=== PATIENT | female | born 1960 | race Caucasian/White ===

== ENCOUNTER → 2017-05-26 | Outpatient (CLI) | payer OTHER ==
--- NOTE | 2017-05-28 11:44 | MM ---
Reason for exam: screening (asymptomatic). Last mammogram was performed 1 year and 1 month ago. History: Family history of breast cancer in paternal aunt and breast cancer in mother at age 30. Physical Findings: A clinical breast exam by your physician is recommended on an annual basis and results should be correlated with mammographic findings. MG Screening Mammo w CAD Bilateral CC and MLO view(s) were taken. Prior study comparison: April 24, 2016, bilateral MG screening mammo w CAD. March 25, 2015, bilateral MG screening mammo w CAD. November 25, 2013, bilateral digital screening mammo w/CAD. The breast tissue is heterogeneously dense. This may lower the sensitivity of mammography. No suspicious abnormality. No significant changes when compared with prior studies. ASSESSMENT: Incomplete: need additional imaging evaluation, BI-RAD 0 RECOMMENDATION: Ultrasound of the left breast. (area of pain). [facility] will attempt to contact patient to return for ultrasound.
== END | disposition home or self-care (01) ==
LOC: RADMAMWWP 11:32
PROVIDERS: ATTEND Obstetrics & Gynecology
DX: Z12.31 Encounter for screening mammogram for malignant neoplasm of breast (principal)

== ENCOUNTER → 2017-06-12 | Outpatient (CLI) | payer OTHER ==
--- NOTE | 2017-06-13 08:27 | USB ---
Reason for exam: additional evaluation requested from abnormal screening. History: Family history of breast cancer in paternal aunt and breast cancer in mother at age 30. 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 US Breast Workup LT Left breast ultrasound demonstates no cystic or solid lesion seen. These results were verbally communicated with the patient and result sheet given to the patient on 06/12/17. ASSESSMENT: Benign, BI-RAD 2 RECOMMENDATION: Return to routine screening mammogram schedule for both breasts. Manage patient on a clinical basis. MARU
== END | disposition home or self-care (01) ==
LOC: RADUSWWP 15:26
PROVIDERS: ATTEND Obstetrics & Gynecology
DX: N64.4 Mastodynia (principal)

== ENCOUNTER → 2019-10-28 | Outpatient (CLI) | payer BC ==
--- NOTE | 2019-10-28 11:34 | XR ---
EXAMINATION TYPE: XR chest 2V DATE OF EXAM: 10/28/2019 COMPARISON: NONE HISTORY: Chest pain TECHNIQUE: Frontal and lateral views of the chest are obtained. FINDINGS: There is no focal air space opacity. No evidence for pneumothorax. No pleural effusion. The cardiac silhouette size is within normal limits. The osseous structures are grossly intact. IMPRESSION: 1. No acute cardiopulmonary process.
== END | disposition home or self-care (01) ==
LOC: RADXRMAIN 11:11
PROVIDERS: ATTEND Nurse Practitioner Family
DX: R05 Cough (principal); R09.89 Other specified symptoms and signs involving the circulatory and respiratory systems
CPT/HCPCS: 71046

== ENCOUNTER → 2021-07-14 | Outpatient (CLI) | payer BC ==
--- NOTE | 2021-07-14 14:03 | MR ---
EXAMINATION TYPE: MR shoulder RT wo con DATE OF EXAM: 07/14/2021 COMPARISON: None. HISTORY: Right shoulder pain with difficulty raising overhead for nearly 2 years per patient. TECHNIQUE: Multiplanar, multisequence imaging of the right shoulder is performed without contrast. FINDINGS: Exam suboptimal as there is motion artifact degradation. Rotator Cuff: Poorly visualized suspect retracted tear of the distal supraspinatus tendon to level of the acromion coronal image 10. Some thinning and increased signal of the infraspinatus tendon are in tact fibers are thought present seen best on sagittal image 18. Some articular surface tearing is see n on coronal images. Subscapularis tendon is intact with some surrounding fluid at level of the labru m. Rotator cuff muscle bulk is preserved. Acromioclavicular Joint: Moderate to severe narrowing at the acromioclavicular joint with subchondral cystic formation. Moderate superior capsular hypertrophy. Loss of underlying fat plane. No significa nt spurring. Glenohumeral Joint: Moderate narrowing. Small to moderate-sized joint effusion. No significant spurri ng. Labrum: The labrum appears grossly intact given limitation of non-arthrogram study. Biceps Tendon: The long head of biceps is in normal location within bicipital groove. Increased fluid signal surrounding the biceps tendon is noted proximally out of proportion to degree of joint effusi on. Bone marrow signal: Bony Hill-Sachs deformity involving the lateral aspect of the humeral head. Subch ondral cystic change and mild edema at this level is present. No bony Bankhart type lesion anterior-i nferior glenoid. Other: No additional significant abnormality is appreciated. IMPRESSION: 1. Significant likely full-thickness retracted tear of the supraspinatus tendon despite significant m uscular atrophy. Tendinosis and partial tearing of the infraspinatus tendon. 2. 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 3. Moderate glenohumeral joint arthropathy. 4. Bony Hill-Sachs type deformity, correlate clinically for prior dislocation injury. 5. Bicipital tenosynovitis.
== END | disposition home or self-care (01) ==
LOC: RADMRIMAIN 12:43
PROVIDERS: ATTEND Orthopaedic Surgery
DX: M12.811 Other specific arthropathies, not elsewhere classified, right shoulder (principal); M65.811 Other synovitis and tenosynovitis, right shoulder